=== PATIENT | male | born 1975 | race Caucasian/White ===

== ENCOUNTER → 2016-09-21 | Outpatient (CLI) | payer BC ==
[~2016-09-21] MED LIST: ALPRAZOLAM PO; BACTRIM DS TABL1 TAB PO; CETIRIZINE HCL10 MG PO; KEFLEX PO; LISINOPRIL PO; LISINOPRIL20 MG PO; PRAVASTATIN SOD20 MG PO; VICODIN PO; VOLTAREN75 MG PO
--- NOTE | ~2016-09-21 | EKG ---
PATIENT: FRANCISCO ORTEGA UNIT #: [id number] Ventricular Rate: 78 BPM Atrial Rate: 78 BPM P-R Interval: 150 ms QRS Duration: 106 ms Q-T Interval: 360 ms QTC Calculation(Bezet): 410 ms P Catlett: 22 degrees Calculated R Catlett: 59 degrees Calculated T Catlett: 21 degrees Diagnosis Line: Normal sinus rhythm with sinus arrhythmia Diagnosis Line: Normal ECG Diagnosis Line: No previous ECGs available Diagnosis Line: Confirmed by CIERRA PRITCHETT MD ([id number]) on 09/23/2016 Diagnosis Line: 4:23:18 PM INTERPRETING MD: YARELY PADRON
== END | disposition home or self-care (01) ==
LOC: CAMB 08-10 15:00
DX: Z01.810 Encounter for preprocedural cardiovascular examination (principal); K40.90 Unilateral inguinal hernia, without obstruction or gangrene, not specified as recurrent; I49.9 Cardiac arrhythmia, unspecified
CPT/HCPCS: 93005

== ENCOUNTER → 2016-09-28 | Day surgery (SDC) | payer BC ==
--- NOTE | ~2016-09-28 | OR ---
Unit #: [id number] #: [id number] Patient: FRANCISCO ORTEGA [id number] [address] [place], [place] [address] [id number] O MR#: [id number] NAME: FRANCISCO ORTEGA ROOM: Date of Procedure: 09/28/2016 Admission Date: 09/28/2016 Surgeon: Yuval Pérez Jr., M.D. : 1975 Attending Physician: Yuval Pérez Jr., M.D. Referring Physician: Yuval Pérez Jr., M.D. Primary Care Physician: Suze Martinez M.D. OPERATIVE REPORT INDICATIONS FOR PROCEDURE The patient is a 40-year-old white male, who recently presented to the office complaining of a bulge in the right inguinal area. On examination, he was noted to have a right inguinal hernia, which was partially reducible. He was brought in this time for repair of this. The patient understands the procedure including the risks, including that of recurrence and chronic pain with nerve injury, injury to the spermatic cord and testicle, infection, and consents. PREOPERATIVE DIAGNOSIS Right inguinal hernia. POSTOPERATIVE DIAGNOSIS Right inguinal hernia, noting a direct inguinal hernia without evidence of an indirect component. ANESTHESIA General with LMA and 0.5% Marcaine with epinephrine locally as a field block. PROCEDURE PERFORMED Right inguinal hernia repair using plug and patch technique. DESCRIPTION OF PROCEDURE The patient was positioned in supine position. After being anesthetized, he was prepped and draped in routine fashion for right inguinal hernia repair. The right inguinal area was blocked with 0.5% Marcaine with epinephrine as a field block. A transverse incision was made over the right inguinal canal approximately 3 to 4 inch in length. This was carried down through subcutaneous tissue down Praveena and Camper fascia to the external oblique fascia. The fibers of the external oblique were split from the external ring up to past the internal ring. The cord structures were elevated from the pubic tubercle and freed back to the internal ring. The base of the cord structures were checked and there was no evidence of any indirect defect or indirect hernia sac. There was a direct inguinal hernia through the triangle of Hesselbach and the floor of the inguinal canal was somewhat weak. At this point, the attenuated transversalis fascia in the area of the hernia was then scored with the Bovie cautery. An extra large plug was placed in the preperitoneal space and sutured to the fascia circumferentially with interrupted 0 Ethibond sutures. The patch was placed over the floor of the inguinal canal and sutured in place circumferentially with interrupted 0 Ethibond sutures. Unit #: [id number] #: [id number] Patient: FRANCISCO ORTEGA The wound was irrigated with antibiotic solution and after hemostasis achieved with Bovie cautery, the cord structures and ilioinguinal nerve were placed back beneath the external oblique fascia, which was closed with a continuous 3-0 Vicryl suture. The wound was irrigated with antibiotic solution. After hemostasis achieved with Bovie cautery, Praveena and Camper fascia were approximated with interrupted 3-0 Vicryl sutures. Skin edges were approximated with stainless-steel skin clips and skin stapling device. Sterile dressings were applied externally. Estimated blood loss less than 20 mL. The patient received less than 1000 mL of a crystalloid solution during the procedure. Sponges and instrument counts were correct x3. No drains were used. No complications. The patient was taken to the recovery room with stable vital signs in satisfactory condition. Dictated by... Yuval Pérez Jr., MJavy TEJEDA/ingris TD: 09/29/2016 02:32 JOB #: [id number] OPERATIVE REPORT Page 1 of 1 X Yuval Pérez MD X PROCEDURE OPERATIVE NOTE
== END | disposition home or self-care (01) ==
LOC: CSUR 08-16 07:30
DX: K40.90 Unilateral inguinal hernia, without obstruction or gangrene, not specified as recurrent (principal); F41.9 Anxiety disorder, unspecified; I10 Essential (primary) hypertension; E78.00 Pure hypercholesterolemia, unspecified; F17.210 Nicotine dependence, cigarettes, uncomplicated; G47.33 Obstructive sleep apnea (adult) (pediatric); J30.2 Other seasonal allergic rhinitis; Z79.899 Other long term (current) drug therapy; Z98.890 Other specified postprocedural states; Z98.52 Vasectomy status
CPT/HCPCS: J0690; J1170; J1885; J2250; J2370; J2405; J3010